=== PATIENT | female | born 1945 | race Caucasian/White ===

== ENCOUNTER 2019-10-26 15:42 | Emergency (ER) | payer MEDICARE, OTHER ==
[~2019-10-26] VITALS: Ht 157.5 cm; Wt 88.0 kg
[~2019-10-26 15:42] MED LIST: ALBUTERO3; ASPIRIN 8181 MG PO; ASPIRIN325 MG PO; ATENOLOL50 MG PO; CIPROFLOXACN500 MG PO; CLOBETASOL 0.05% EX; CO Q-10200 M1 OR; COMBIVENT; COMBIVENT IN; FLEXERIL10 MG PO; FLUARIX QUADRIV1 INJ IM; FLUZONE SPLT1 M1 IM; GLIPIZIDE XL5 MG PO; GLIPIZIDE5 MG PO; GLUCOTROL XL10 MG PO; HALOBETASOL PR0.05 % EX; HYDROCO/APAP1 T11 PO; HYDROCORTISO2.51 EX; IMODIUM A-D2 MG OR; KETOROLAC60 MG/2 ML IJ; METFORMIN1000 MG PO; METFORMIN500 M1 PO; METFORMIN500 M2 PO; METFORMIN500 MG PO; ONE TOUCH ULTRA 50; ONE TOUCH ULTRA 50 XX; OS-CAL 500500 M1 PO; PNEUMOVAX 23 IM; SOLU-MEDROL125 MG IM; SUDAFED30 MG OR; SYSTANE ULTR OP; TRIAM/HCTZ1 CAP PO; TRIAMCINOLON0.11 EX; VIT E SOLUBL400 UNIT OR; VITAMIN B-122500 MCG SL
[2019-10-26] MEDS ORDERED: LIPITOR10 M1 PO (16:16)
[2019-10-26] MEDS ORDERED: BREO ELLIPTA 101 INH IN (16:22)
[2019-10-26] MEDS ORDERED: CLOPIDOGREL75 MG PO (16:23)
[2019-10-26 16:32] LABS: IMMATURE GRANULOCYTES 0.4 % (0.0-5.0); MEAN CORPUSCULAR HGB 22.1 pG CALC (26.0-32.0); MEAN CORPUSCULAR HGB CONC 26.6 g/dL CAL (32.0-36.0); NEUT# 7.59 thou/uL (2.00-7.15); RED BLOOD COUNT 3.71 mill/uL (4.20-5.60)
[2019-10-26 16:33] LABS: HEMATOCRIT 30.8 % (37.0-47.0); HEMOGLOBIN 8.2 g/dl (12.0-16.0)
[2019-10-26] MEDS ORDERED: FOLIC ACID1 MG PO (16:36)
[2019-10-26] MEDS ORDERED: FARXIGA10 MG PO (16:36)
[2019-10-26] MEDS ORDERED: FUROSEMIDE20 MG PO (16:37)
[2019-10-26] MEDS ORDERED: LANTUS100 UNIT/M SC (16:38)
[2019-10-26] MEDS ORDERED: PROPRANOLOL HCL80 MG PO (16:39)
[2019-10-26 16:58] LABS: ALBUMIN 3.8 g/dL (3.2-5.0); ALKALINE PHOSPHATASE 103 u/l (38-126); ANION GAP 10 (6-22 (CALC)); BILIRUBIN, TOTAL 0.5 mg/dL (0.0-1.4); BUN 15 mg/dL (8-23); BUN/CREATININE RATIO 10 (12-20 (CALC)); CARBON DIOXIDE 33 mmol/l (22-30); CHLORIDE 97 mmol/l (95-108); CREATININE 1.5 mg/dL (0.5-1.0); GFR 34 ML/MIN (>=60 (CALC)); GFR FOR AFR.AMER. 41 ML/MIN (>=60 (CALC)); LIPASE 96 u/l (23-300); MAGNESIUM 1.9 mg/dL (1.6-2.3); SGOT/AST 21 u/l (9-36); SODIUM 137 mmol/l (137-146); TOTAL PROTEIN 6.7 g/dL (6.3-8.2)
[2019-10-26] MEDS ORDERED: PANTOPRAZOLE SO40 M1 PO (17:00)
[2019-10-26 18:27] LABS: URINE BILIRUBIN - DIPSTICK NEGATIVE (NEGATIVE); URINE BLOOD DIPSTICK NEGATIVE (NEGATIVE); URINE COLOR YELLOW; URINE GLUCOSE - DIPSTICK >=1000 mg/dL (NEGATIVE); URINE KETONE NEGATIVE (NEGATIVE); URINE LEUK ESTERASE NEGATIVE (NEGATIVE); URINE NITRITE - DIPSTICK NEGATIVE (Negative); URINE PROTEIN - DIPSTICK 30 mg/dL (NEG-TRACE); URINE SPECIFIC GRAVITY 1.015; URINE UROBILINOGEN - DIPSTICK 0.2 E.U./dL (0.2)
[2019-10-26 18:35] LABS: URINE RBC 0-2 RBC/hpf (0-5); URINE SQUAMOUS EPITHELIAL CELL FEW EPI/hpf (0-FEW); URINE WBC 0-2 WBC/hpf (0-5)
[2019-10-26 19:30] VITALS: BP 135/57
[2019-11-01] MEDS ORDERED: ENALAPRIL5 MG PO (13:16)
[2019-11-01] MEDS ORDERED: VITAMIN D400 UNI1 PO (13:16)
[2019-11-27] MEDS ORDERED: ELIQUIS2.5 MG PO (11:14)
[2019-11-27] MEDS ORDERED: MAGNESIUM250 M1 PO (11:14)
[2019-11-27] MEDS ORDERED: GLIPIZIDE5 MG PO (11:14)
[2019-11-27] MEDS ORDERED: IPRATROPIU0.5 MG/3 M IN (11:15)
== END 2019-10-26 19:30 | disposition home or self-care (01) ==
LOC: ED 15:42
PROVIDERS: Family Medicine
DX: D64.9 Anemia, unspecified (principal); K92.1 Melena; I11.0 Hypertensive heart disease with heart failure; I50.9 Heart failure, unspecified; E11.9 Type 2 diabetes mellitus without complications; J44.9 Chronic obstructive pulmonary disease, unspecified; Z86.73 Personal history of transient ischemic attack (TIA), and cerebral infarction without residual deficits; Z79.4 Long term (current) use of insulin
CPT/HCPCS: Q9967

== ENCOUNTER 2019-12-04 06:42 | Day surgery (SDC) | payer MEDICARE, OTHER ==
--- NOTE | 2019-11-16 08:35 | NUR ---
PATIENT PHONED AND STATED SHE WANTS TO CANCEL HER COLONOSCOPY AND EGD. SHE WAS NO LONGER HAVING DARK STOOLS. I ADVISED OR TO CANCEL PREOP AND PROCEDURE.
[~2019-12-04] VITALS: Ht 157.5 cm; Wt 91.6 kg
[~2019-12-04 06:42] MED LIST changes: +BREO ELLIPTA 101 INH IN; +CLOPIDOGREL75 MG PO; +ELIQUIS2.5 MG PO; +ENALAPRIL5 MG PO; +FARXIGA10 MG PO; +FOLIC ACID1 MG PO; +FUROSEMIDE20 MG PO; +IPRATROPIU0.5 MG/3 M IN; +LANTUS100 UNIT/M SC; +LIPITOR10 M1 PO; +MAGNESIUM250 M1 PO; +PANTOPRAZOLE SO40 M1 PO; +PROPRANOLOL HCL80 MG PO; +VITAMIN D400 UNI1 PO
[2019-12-04 09:09] VITALS: BP 127/55
== END 2019-12-04 09:26 | disposition home or self-care (01) ==
LOC: ENDO 06:42 → ORM 08:00 → ENDO 09:26
PROVIDERS: ATTEND Surgery
PROC: 0DBH8ZX Excision of Cecum, Via Natural or Artificial Opening Endoscopic, Diagnostic (ICD-10-PCS; principal; 2019-12-04)
PROC: 0DBL8ZX Excision of Transverse Colon, Via Natural or Artificial Opening Endoscopic, Diagnostic (ICD-10-PCS; 2019-12-04)
PROC: 0W3P8ZZ Control Bleeding in Gastrointestinal Tract, Via Natural or Artificial Opening Endoscopic (ICD-10-PCS; 2019-12-04)
PROC: 0DB48ZX Excision of Esophagogastric Junction, Via Natural or Artificial Opening Endoscopic, Diagnostic (ICD-10-PCS; 2019-12-04)
DX: K55.21 Angiodysplasia of colon with hemorrhage (principal); D12.3 Benign neoplasm of transverse colon; K57.31 Diverticulosis of large intestine without perforation or abscess with bleeding; K29.71 Gastritis, unspecified, with bleeding; K20.91 Esophagitis, unspecified with bleeding; I11.0 Hypertensive heart disease with heart failure; I50.9 Heart failure, unspecified; E11.9 Type 2 diabetes mellitus without complications; J44.9 Chronic obstructive pulmonary disease, unspecified; Z86.73 Personal history of transient ischemic attack (TIA), and cerebral infarction without residual deficits; Z90.49 Acquired absence of other specified parts of digestive tract; Z79.4 Long term (current) use of insulin; Z20.828 Contact with and (suspected) exposure to other viral communicable diseases

== ENCOUNTER 2021-11-05 15:25 | Emergency (ER) | payer MEDICARE, MEDICAID ==
[2021-11-05] VITALS (14 sets, daily range): BP systolic 70–228; BP diastolic 52–79
[~2021-11-05] VITALS: Ht 157.5 cm; Wt 83.0 kg
[2021-11-05 16:07] LABS: HEMATOCRIT 35.6 % (37.0-47.0); HEMOGLOBIN 11.4 g/dl (12.0-16.0); IMMATURE GRANULOCYTES 0.7 % (0.0-5.0); MEAN CELL VOLUME 94.7 fL CALC (80.0-100.0); MEAN CORPUSCULAR HGB 30.3 pG CALC (26.0-32.0); NEUT# 6.14 thou/uL (2.00-7.15); RED BLOOD COUNT 3.76 mill/uL (4.20-5.60); RED CELL DISTRI WIDTH 13.3 % (11.5-15.5)
[2021-11-05 16:27] LABS: ALBUMIN 4.2 g/dL (3.2-5.0); ALKALINE PHOSPHATASE 118 u/l (38-126); ANION GAP 11 (6-22 (CALC)); BILIRUBIN, TOTAL 0.6 mg/dL (0.0-1.4); BUN 23 mg/dL (8-23); BUN/CREATININE RATIO 25 (12-20 (CALC)); CARBON DIOXIDE 32 mmol/l (22-30); CHLORIDE 95 mmol/l (95-108); CREATININE 0.9 mg/dL (0.5-1.0); GFR FOR AFR.AMER. > 60 ML/MIN (>=60 (CALC)); GFR OTHER RACES > 60 ML/MIN (>=60 (CALC)); POTASSIUM 4.1 mmol/l (3.5-5.1); SGOT/AST 24 u/l (9-36); SODIUM 134 mmol/l (137-146); TOTAL PROTEIN 6.8 g/dL (6.3-8.2)
[2021-11-05 16:45] LABS: LIPASE 75 u/l (23-300)
[2021-11-05 17:01] LABS: URINE BILIRUBIN - DIPSTICK NEGATIVE (NEGATIVE); URINE BLOOD DIPSTICK SMALL (NEGATIVE); URINE COLOR YELLOW; URINE GLUCOSE - DIPSTICK 500 mg/dL (NEGATIVE); URINE KETONE NEGATIVE (NEGATIVE); URINE LEUK ESTERASE NEGATIVE (NEGATIVE); URINE PROTEIN - DIPSTICK 100 mg/dL (NEG-TRACE); URINE UROBILINOGEN - DIPSTICK 0.2 E.U./dL (0.2)
[2021-11-05 17:13] LABS: URINE NITRITE - DIPSTICK NEGATIVE (Negative)
[2021-11-05 17:14] LABS: URINE SQUAMOUS EPITHELIAL CELL FEW EPI/hpf (0-FEW); URINE WBC 0-2 WBC/hpf (0-5)
== END 2021-11-05 20:55 | disposition home or self-care (01) ==
LOC: ED 15:25
PROVIDERS: Family Medicine
DX: R10.31 Right lower quadrant pain (principal); R10.32 Left lower quadrant pain; R53.1 Weakness; I11.0 Hypertensive heart disease with heart failure; I50.9 Heart failure, unspecified; E11.9 Type 2 diabetes mellitus without complications; J44.9 Chronic obstructive pulmonary disease, unspecified; Z86.73 Personal history of transient ischemic attack (TIA), and cerebral infarction without residual deficits; Z79.4 Long term (current) use of insulin; Z20.822 Contact with and (suspected) exposure to COVID-19
CPT/HCPCS: Q9967